=== PATIENT | male | born 1955 | race Caucasian/White ===

== ENCOUNTER 2017-04-16 11:52 | Inpatient (IN) | payer MEDICARE ==
[~2017-04-16] VITALS: Ht 172.7 cm; Wt 61.4 kg
[~2017-04-16 11:52] MED LIST: ALBU8.5H8 IH; ALBU8HFA IH; ASPI-556 PO; BUDE10.2 IH; GLIP10TA9 PO; LISI-661 PO; METF10002 PO
[2017-04-16 12:07] LABS: GLUCOSE,POINT OF CARE 386 MG/DL (70-110)
[2017-04-16 13:02] LABS: BASOPHILS # (AUTO) 0.01 K/uL (0.00-0.20); BASOPHILS % (AUTO) 0.1 % (0.0-2.0); EOSINOPHILS # (AUTO) 0.02 K/uL (0.00-0.70); HEMATOCRIT 47.9 % (41-53); HEMOGLOBIN 16.5 g/dL (13.5-17.5); LYMPHOCYTES # (AUTO) 0.9 K/uL (1.0-4.8); LYMPHOCYTES % (AUTO) 16.6 % (22.0-44.0); MEAN CORPUSCULAR HGB CONC 34.4 G/dL (31.0-37.0); MEAN CORPUSCULAR VOLUME 87 fL (80-100); MONOCYTES # (AUTO) 0.5 K/uL (0.1-1.0); MONOCYTES % (AUTO) 8.8 % (2.0-9.0); NEUTROPHILS % (AUTO) 74.1 % (40.0-70.0); PLATELET COUNT (AUTO) 145 K/uL (150-450); RED BLOOD CELL COUNT(AUTO) 5.48 MIL/uL (4.50-5.90); RED CELL DISTRIBUTION WIDTH 13.1 % (11.5-14.5)
[2017-04-16 13:10] LABS: INR 1.1 (0.9-1.1); PROTHROMBIN TIME 11.4 SEC (9.4-11.6)
[2017-04-16 13:55] LABS: ALANINE AMINOTRANSFERASE 33 U/L (12-78); ALBUMIN 3.3 g/dL (3.4-5.0); ALKALINE PHOSPHATASE 69 U/L (46-116); ANION GAP 13 mmol/L (8-16); ASPARTATE AMINOTRANSFERASE 25 U/L (15-37); BILIRUBIN,TOTAL 0.5 mg/dL (0.1-1.0); CALCIUM, TOTAL 9.5 mg/dL (8.8-10.5); CARBON DIOXIDE 24 mmol/L (22-29); CHLORIDE 98 mmol/L (98-107); CREATINE KINASE MB 1.7 ng/mL (0-5); CREATINE KINASE, TOTAL 128 U/L (39-308); GLOMERULAR FILTR. RATE CALC > 60 mL/min (>60); POTASSIUM 4.4 mmol/L (3.5-5.1); SODIUM SERUM 135 mmol/L (136-145); TOTAL PROTEIN, SERUM 7.7 g/dL (6.4-8.2); UREA NITROGEN, BLOOD 16 mg/dL (7-18)
[2017-04-16 13:58] LABS: GLUCOSE,RANDOM 508 mg/dL (70-110)
[2017-04-16 14:44] LABS: INFLUENZA TYPE A NEGATIVE FOR TYPE A (NEGATIVE); INFLUENZA TYPE B NEGATIVE FOR TYPE B (NEGATIVE)
[2017-04-16] MEDS ORDERED: SODIUM CHLORIDE 0.9% 1,000 ML IV ONE ×2 (15:45→18:15)
[2017-04-16 17:32] LABS: APPEARANCE,URINE CLOUDY (CLEAR); BILIRUBIN,URINE NEGATIVE (NEGATIVE); GLUCOSE, URINE (UA) >=1000 mg/dL (NEGATIVE); KETONES,URINE 40 mg/dL (NEGATIVE); LEUKOCYTE ESTERASE ,URINE TRACE (NEGATIVE); NITRATE,URINE POSITIVE (NEGATIVE); OCCULT BLOOD,URINE LARGE (NEGATIVE); PROTEIN,URINE POS 1+ (NEGATIVE)
[2017-04-16 17:54] LABS: RBC,URINE 51-100 /HPF (0-2); SQUAMOUS EPITHELIAL CELL,UR Few /LPF (None Seen)
[2017-04-16 17:55] LABS: BACTERIA,URINE Few /HPF (None Seen)
[2017-04-16] MEDS ORDERED: ONDANSETRON HCL 4 MG/2 ML VIAL IVP ONE ×2 (18:15→21:30)
[2017-04-16] MEDS ORDERED: CefTRIAXone 1 GM/DEXTROSE 50 ML IV ONE (18:15)
[2017-04-16] MEDS ORDERED: MORPHINE SULFATE 4 MG/ML SYRINGE IVP ONE (18:15)
[2017-04-16 19:07] LABS: GLUCOSE,POINT OF CARE 281 MG/DL (70-110)
[2017-04-16] MEDS ORDERED: ACETAMINOPHEN 325 MG TABLET PO PRN (20:15)
[2017-04-16] MEDS ORDERED: 0.9% SODIUM CHLORIDE 10 ML SYRINGE IVP PRN (20:15)
[2017-04-16] MEDS ORDERED: ONDANSETRON HCL 4 MG/2 ML VIAL IVP PRN (20:15)
[2017-04-16] MEDS ORDERED: MORPHINE SULFATE 10 MG/ML SYRINGE IVP ONE (21:30)
[2017-04-16 22:43] LABS: GLUCOMETER DEV NAME(LOC) PV 4E; GLUCOSE,POINT OF CARE 280 MG/DL (70-110)
[2017-04-16 22:51] VITALS: BP 174/99
[2017-04-17] VITALS (7 sets, daily range): BP systolic 126–180; BP diastolic 76–107
[2017-04-17] MEDS: MORPHINE SULFATE 2 MG/ML SYRINGE IVP PRN (05:07)
[2017-04-17] MEDS: HYDROCODONE/ACETAMINOPHEN 5-325 MG TABLET PO PRN ×2 (06:24→20:04)
[2017-04-17] MEDS ORDERED: INFLUENZA VIRUS VACCINE QVS 2017-18 (3YR+)/PF 60 MCG/0.5 ML SYRINGE IM ONE (07:00)
[2017-04-17 07:38] LABS: GLUCOMETER DEV NAME(LOC) PV 4E; GLUCOSE,POINT OF CARE 277 MG/DL (70-110)
[2017-04-17] MEDS ORDERED: ALBUTEROL SULFATE HFA 90 MCG/PUFF 8 GM INHALER IH PRN ×2 (08:45→11:48)
[2017-04-17] MEDS ORDERED: MAGNESIUM HYDROXIDE SUSPENSION 30 ML UDCUP PO PRN (08:45)
[2017-04-17] MEDS ORDERED: DEXTROSE 50%-WATER 25 GM/50 ML SYRINGE IVP PRN ×2 (08:45→12:30)
[2017-04-17] MEDS ORDERED: ZOLPIDEM TARTRATE 5 MG TABLET PO PRN (08:45)
[2017-04-17] MEDS ORDERED: ACETAMINOPHEN 325 MG TABLET PO PRN (08:45)
[2017-04-17] MEDS ORDERED: MORPHINE SULFATE 2 MG/ML SYRINGE IVP PRN (08:45)
[2017-04-17] MEDS ORDERED: ONDANSETRON HCL 4 MG/2 ML VIAL IVP PRN (08:45)
[2017-04-17] MEDS ORDERED: INSULIN ASPART 100 UNITS/ML SQ PRN (08:45)
[2017-04-17] MEDS: DOCUSATE SODIUM 100 MG CAPSULE PO SCH ×2 (09:00→20:01)
[2017-04-17] MEDS ORDERED: HydrALAZINE HCL 20 MG/ML VIAL IVP PRN (09:00)
[2017-04-17] MEDS: ASPIRIN 81 MG EC TABLET PO SCH (09:00)
[2017-04-17] MEDS ORDERED: ENOXAPARIN SODIUM 40 MG/0.4 ML PF SYRINGE SQ SCH (09:00)
[2017-04-17] MEDS ORDERED: BARIUM SULFATE 0.1% SUSPENSION 450 ML BOTTLE ONE (10:32)
[2017-04-17] MEDS: LISINOPRIL 10 MG TABLET PO SCH (10:33)
[2017-04-17] MEDS: PANTOPRAZOLE SODIUM 40 MG DR TABLET PO SCH (10:33)
[2017-04-17] MEDS: BUDESONIDE/FORMOTEROL FUMARATE 160-4.5 MCG/PUFF 6.9 GM INHALER IH SCH ×2 (10:39→20:07)
[2017-04-17 10:52] LABS: BASOPHILS % (AUTO) 0.4 % (0.0-2.0); EOSINOPHILS % (AUTO) 0.9 % (1.0-6.0); HEMATOCRIT 41.9 % (41-53); HEMOGLOBIN 14.5 g/dL (13.5-17.5); LYMPHOCYTES # (AUTO) 1.3 K/uL (1.0-4.8); LYMPHOCYTES % (AUTO) 28.9 % (22.0-44.0); MEAN CORPUSCULAR HEMOGLOBIN 30.6 pg (26.0-34.0); MEAN CORPUSCULAR HGB CONC 34.7 G/dL (31.0-37.0); MEAN CORPUSCULAR VOLUME 88 fL (80-100); MONOCYTES # (AUTO) 0.4 K/uL (0.1-1.0); MONOCYTES % (AUTO) 8.7 % (2.0-9.0); NEUTROPHILS # (AUTO) 2.7 K/uL (1.8-7.7); NEUTROPHILS % (AUTO) 61.1 % (40.0-70.0); PLATELET COUNT (AUTO) 152 K/uL (150-450); RED BLOOD CELL COUNT(AUTO) 4.75 MIL/uL (4.50-5.90); RED CELL DISTRIBUTION WIDTH 12.7 % (11.5-14.5)
[2017-04-17 10:59] LABS: INR 1.1 (0.9-1.1); PROTHROMBIN TIME 11.2 SEC (9.4-11.6)
[2017-04-17 11:11] LABS: ALANINE AMINOTRANSFERASE 31 U/L (12-78); ALBUMIN 2.9 g/dL (3.4-5.0); ALKALINE PHOSPHATASE 61 U/L (46-116); ANION GAP 6 mmol/L (8-16); ASPARTATE AMINOTRANSFERASE 23 U/L (15-37); BILIRUBIN,TOTAL 0.4 mg/dL (0.1-1.0); CALCIUM, TOTAL 8.9 mg/dL (8.8-10.5); CARBON DIOXIDE 30 mmol/L (22-29); CHLORIDE 97 mmol/L (98-107); CREATININE 0.94 mg/dL (0.60-1.30); GLOMERULAR FILTR. RATE CALC > 60 mL/min (>60); POTASSIUM 4.9 mmol/L (3.5-5.1); SODIUM SERUM 133 mmol/L (136-145); TOTAL PROTEIN, SERUM 6.8 g/dL (6.4-8.2); UREA NITROGEN, BLOOD 12 mg/dL (7-18)
[2017-04-17 11:17] LABS: GLUCOSE,RANDOM 504 mg/dL (70-110)
[2017-04-17] MEDS ORDERED: INSULIN ASPART 100 UNITS/ML SQ ONE (11:45)
[2017-04-17] MEDS: INSULIN GLARGINE,HUM.REC.ANLOG 100 UNITS/ML SQ SCH ×2 (11:59→20:11)
[2017-04-17 12:18] LABS: GLUCOMETER DEV NAME(LOC) PV 4E; GLUCOSE,POINT OF CARE 433 MG/DL (70-110)
[2017-04-17 12:53] LABS: GLUCOMETER DEV NAME(LOC) PV 4E; GLUCOSE,POINT OF CARE 259 MG/DL (70-110)
[2017-04-17] MEDS ORDERED: ENALAPRILAT DIHYDRATE 1.25 MG/ML VIAL IVP PRN (13:30)
[2017-04-17] MEDS ORDERED: IOVERSOL 350 MG/ML 100 ML VIAL ONE (13:51)
[2017-04-17] MEDS ORDERED: SODIUM CHLORIDE 0.9% 100 ML ONE (13:51)
[2017-04-17 14:13] LABS: GLUCOMETER DEV NAME(LOC) PV 4E; GLUCOSE,POINT OF CARE 156 MG/DL (70-110)
[2017-04-17 14:38] LABS: GLUCOMETER DEV NAME(LOC) PV 4E; GLUCOSE,POINT OF CARE 126 MG/DL (70-110)
[2017-04-17 15:18] LABS: GLUCOMETER DEV NAME(LOC) PV 4E; GLUCOSE,POINT OF CARE 101 MG/DL (70-110)
[2017-04-17 16:23] LABS: GLUCOMETER DEV NAME(LOC) PV 4E; GLUCOSE,POINT OF CARE 181 MG/DL (70-110)
[2017-04-17] MEDS: INSULIN ASPART 100 UNITS/ML SQ PRN ×2 (17:44→20:12)
[2017-04-17] MEDS ORDERED: SODIUM CHLORIDE 0.9% 500 ML IV ONE (18:18)
[2017-04-17] MEDS: CefTRIAXone 1 GM/DEXTROSE 50 ML IV SCH (18:31)
[2017-04-17 20:52] LABS: GLUCOMETER DEV NAME(LOC) PV 4E; GLUCOSE,POINT OF CARE 381 MG/DL (70-110)
[2017-04-18] MEDS: INSULIN ASPART 100 UNITS/ML SQ PRN ×4 (04:36→23:24)
[2017-04-18 04:44] VITALS: BP 110/73
[2017-04-18] MEDS: HYDROCODONE/ACETAMINOPHEN 5-325 MG TABLET PO PRN (05:43)
[2017-04-18 07:17] LABS: GLUCOMETER DEV NAME(LOC) PV 4E; GLUCOSE,POINT OF CARE 210 MG/DL (70-110)
[2017-04-18 08:20] VITALS: BP 140/70
[2017-04-18] MEDS: LISINOPRIL 10 MG TABLET PO SCH (09:00)
[2017-04-18] MEDS: ASPIRIN 81 MG EC TABLET PO SCH (09:00)
[2017-04-18] MEDS: PANTOPRAZOLE SODIUM 40 MG DR TABLET PO SCH (09:00)
[2017-04-18] MEDS: DOCUSATE SODIUM 100 MG CAPSULE PO SCH ×2 (09:00→23:21)
[2017-04-18] MEDS: INSULIN GLARGINE,HUM.REC.ANLOG 100 UNITS/ML SQ SCH ×2 (09:09→23:23)
[2017-04-18] MEDS: BUDESONIDE/FORMOTEROL FUMARATE 160-4.5 MCG/PUFF 6.9 GM INHALER IH SCH ×2 (09:18→23:24)
[2017-04-18 12:13] VITALS: BP 145/97
[2017-04-18 13:47] LABS: GLUCOMETER DEV NAME(LOC) PV 4E; GLUCOSE,POINT OF CARE 280 MG/DL (70-110)
[2017-04-18] MEDS: MORPHINE SULFATE 2 MG/ML SYRINGE IVP PRN ×2 (14:25→20:14)
[2017-04-18 15:47] VITALS: BP 133/88
[2017-04-18] MEDS: CefTRIAXone 1 GM/DEXTROSE 50 ML IV SCH (16:50)
[2017-04-18 19:42] LABS: GLUCOMETER DEV NAME(LOC) PV 4E; GLUCOSE,POINT OF CARE 210 MG/DL (70-110)
[2017-04-18 23:37] LABS: GLUCOMETER DEV NAME(LOC) PV 4E; GLUCOSE,POINT OF CARE 287 MG/DL (70-110)
[2017-04-18 23:57] VITALS: BP 132/78
[2017-04-19 03:38] VITALS: BP 134/89
[2017-04-19] MEDS: HYDROCODONE/ACETAMINOPHEN 5-325 MG TABLET PO PRN ×3 (03:51→20:34)
[2017-04-19 06:48] LABS: GLUCOMETER DEV NAME(LOC) PV 4E; GLUCOSE,POINT OF CARE 103 MG/DL (70-110)
[2017-04-19 07:10] LABS: BASOPHILS % (AUTO) 0.5 % (0.0-2.0); EOSINOPHILS % (AUTO) 1.3 % (1.0-6.0); HEMATOCRIT 43.3 % (41-53); HEMOGLOBIN 14.8 g/dL (13.5-17.5); LYMPHOCYTES # (AUTO) 1.9 K/uL (1.0-4.8); LYMPHOCYTES % (AUTO) 29.1 % (22.0-44.0); MEAN CORPUSCULAR HEMOGLOBIN 30.4 pg (26.0-34.0); MEAN CORPUSCULAR HGB CONC 34.2 G/dL (31.0-37.0); MEAN CORPUSCULAR VOLUME 89 fL (80-100); MONOCYTES # (AUTO) 0.5 K/uL (0.1-1.0); MONOCYTES % (AUTO) 7.2 % (2.0-9.0); NEUTROPHILS % (AUTO) 61.9 % (40.0-70.0); PLATELET COUNT (AUTO) 206 K/uL (150-450); RED BLOOD CELL COUNT(AUTO) 4.87 MIL/uL (4.50-5.90); RED CELL DISTRIBUTION WIDTH 12.8 % (11.5-14.5)
[2017-04-19 07:16] LABS: ANION GAP 9 mmol/L (8-16); CALCIUM, TOTAL 8.7 mg/dL (8.8-10.5); CARBON DIOXIDE 31 mmol/L (22-29); CHLORIDE 102 mmol/L (98-107); CREATININE 0.95 mg/dL (0.60-1.30); GLOMERULAR FILTR. RATE CALC > 60 mL/min (>60); GLUCOSE,RANDOM 113 mg/dL (70-110); POTASSIUM 3.3 mmol/L (3.5-5.1); SODIUM SERUM 142 mmol/L (136-145); UREA NITROGEN, BLOOD 15 mg/dL (7-18)
[2017-04-19 08:05] VITALS: BP 156/96
[2017-04-19] MEDS: ASPIRIN 81 MG EC TABLET PO SCH (09:43)
[2017-04-19] MEDS: PANTOPRAZOLE SODIUM 40 MG DR TABLET PO SCH (09:43)
[2017-04-19] MEDS: DOCUSATE SODIUM 100 MG CAPSULE PO SCH ×2 (09:43→20:34)
[2017-04-19] MEDS: LISINOPRIL 10 MG TABLET PO SCH (09:43)
[2017-04-19] MEDS: INSULIN GLARGINE,HUM.REC.ANLOG 100 UNITS/ML SQ SCH ×2 (09:54→20:35)
[2017-04-19 10:02] LABS: GLUCOMETER DEV NAME(LOC) PV 4E; GLUCOSE,POINT OF CARE 128 MG/DL (70-110)
[2017-04-19] MEDS ORDERED: POTASSIUM CHLORIDE 20 MEQ ER TABLET PO ONE (10:45)
[2017-04-19 12:05] VITALS: BP 141/79
[2017-04-19] MEDS: MORPHINE SULFATE 2 MG/ML SYRINGE IVP PRN ×2 (12:09→23:53)
[2017-04-19] MEDS: INSULIN ASPART 100 UNITS/ML SQ PRN ×3 (12:15→20:36)
[2017-04-19 12:49] LABS: GLUCOMETER DEV NAME(LOC) PV 4E; GLUCOSE,POINT OF CARE 243 MG/DL (70-110)
[2017-04-19] MEDS: BUDESONIDE/FORMOTEROL FUMARATE 160-4.5 MCG/PUFF 6.9 GM INHALER IH SCH ×2 (15:49→20:31)
[2017-04-19 16:11] VITALS: BP 160/91
[2017-04-19 17:14] LABS: GLUCOMETER DEV NAME(LOC) PV 4E; GLUCOSE,POINT OF CARE 174 MG/DL (70-110)
[2017-04-19] MEDS: CefTRIAXone 1 GM/DEXTROSE 50 ML IV SCH (17:36)
[2017-04-19 20:06] VITALS: BP 149/88
[2017-04-19 21:17] LABS: GLUCOMETER DEV NAME(LOC) PV 4E; GLUCOSE,POINT OF CARE 137 MG/DL (70-110)
[2017-04-19 23:57] VITALS: BP 147/91
[2017-04-20] MEDS: HYDROCODONE/ACETAMINOPHEN 5-325 MG TABLET PO PRN ×2 (05:16→13:38)
[2017-04-20 05:48] VITALS: BP 140/90
[2017-04-20 06:03] LABS: GLUCOMETER DEV NAME(LOC) PV 4E; GLUCOSE,POINT OF CARE 99 MG/DL (70-110)
[2017-04-20 06:11] LABS: BASOPHILS # (AUTO) 0.01 K/uL (0.00-0.20); BASOPHILS % (AUTO) 0.2 % (0.0-2.0); EOSINOPHILS % (AUTO) 1.69 % (1.0-6.0); HEMATOCRIT 43.3 % (41-53); HEMOGLOBIN 14.4 g/dL (13.5-17.5); LYMPHOCYTES # (AUTO) 2.1 K/uL (1.0-4.8); LYMPHOCYTES % (AUTO) 35.1 % (22.0-44.0); MEAN CORPUSCULAR HGB CONC 33.2 G/dL (31.0-37.0); MEAN CORPUSCULAR VOLUME 90 fL (80-100); MONOCYTES # (AUTO) 0.4 K/uL (0.1-1.0); MONOCYTES % (AUTO) 6.5 % (2.0-9.0); NEUTROPHILS # (AUTO) 3.4 K/uL (1.8-7.7); NEUTROPHILS % (AUTO) 56.5 % (40.0-70.0); PLATELET COUNT (AUTO) 213 K/uL (150-450)
[2017-04-20 06:14] LABS: ANION GAP 7 mmol/L (8-16); CALCIUM, TOTAL 8.8 mg/dL (8.8-10.5); CARBON DIOXIDE 31 mmol/L (22-29); CHLORIDE 102 mmol/L (98-107); CREATININE 0.89 mg/dL (0.60-1.30); GLOMERULAR FILTR. RATE CALC > 60 mL/min (>60); GLUCOSE,RANDOM 112 mg/dL (70-110); POTASSIUM 4.4 mmol/L (3.5-5.1); SODIUM SERUM 140 mmol/L (136-145); UREA NITROGEN, BLOOD 14 mg/dL (7-18)
[2017-04-20 07:49] VITALS: BP 133/78
[2017-04-20] MEDS: PANTOPRAZOLE SODIUM 40 MG DR TABLET PO SCH (08:03)
[2017-04-20] MEDS: ASPIRIN 81 MG EC TABLET PO SCH (08:03)
[2017-04-20] MEDS: DOCUSATE SODIUM 100 MG CAPSULE PO SCH ×2 (08:03→20:37)
[2017-04-20] MEDS: LISINOPRIL 10 MG TABLET PO SCH (08:04)
[2017-04-20] MEDS: BUDESONIDE/FORMOTEROL FUMARATE 160-4.5 MCG/PUFF 6.9 GM INHALER IH SCH ×2 (08:06→20:40)
[2017-04-20 09:14] LABS: GLUCOMETER DEV NAME(LOC) PV 4E; GLUCOSE,POINT OF CARE 147 MG/DL (70-110)
[2017-04-20] MEDS: INSULIN GLARGINE,HUM.REC.ANLOG 100 UNITS/ML SQ SCH ×2 (09:14→21:00)
[2017-04-20 11:32] VITALS: BP 150/86
[2017-04-20] MEDS ORDERED: MULTIVITAMINS WITH MINERALS, THERAPEUTIC TABLET PO ONE (11:45)
[2017-04-20 12:17] LABS: GLUCOMETER DEV NAME(LOC) PV 4E; GLUCOSE,POINT OF CARE 240 MG/DL (70-110)
[2017-04-20] MEDS: INSULIN ASPART 100 UNITS/ML SQ PRN ×2 (12:17→17:49)
[2017-04-20 15:22] VITALS: BP 146/72
[2017-04-20] MEDS ORDERED: SODIUM CHLORIDE IRRIG ONE (17:14)
[2017-04-20] MEDS: CefTRIAXone 1 GM/DEXTROSE 50 ML IV SCH (17:41)
[2017-04-20 18:08] LABS: GLUCOMETER DEV NAME(LOC) PV 4E; GLUCOSE,POINT OF CARE 232 MG/DL (70-110)
[2017-04-20] MEDS: MORPHINE SULFATE 2 MG/ML SYRINGE IVP PRN (20:36)
[2017-04-20 20:47] VITALS: BP 133/78
[2017-04-20 23:31] VITALS: BP 114/70
[2017-04-21] MEDS: HYDROCODONE/ACETAMINOPHEN 5-325 MG TABLET PO PRN ×2 (01:36→11:47)
[2017-04-21 03:54] LABS: GLUCOMETER DEV NAME(LOC) PV 4E; GLUCOSE,POINT OF CARE 115 MG/DL (70-110)
[2017-04-21 04:13] VITALS: BP 123/72
[2017-04-21] MEDS: INSULIN ASPART 100 UNITS/ML SQ PRN ×2 (06:06→11:58)
[2017-04-21 06:44] LABS: BASOPHILS % (AUTO) 0.3 % (0.0-2.0); EOSINOPHILS % (AUTO) 1.4 % (1.0-6.0); HEMATOCRIT 41.6 % (41-53); HEMOGLOBIN 14.2 g/dL (13.5-17.5); LYMPHOCYTES # (AUTO) 1.7 K/uL (1.0-4.8); LYMPHOCYTES % (AUTO) 26.3 % (22.0-44.0); MEAN CORPUSCULAR HEMOGLOBIN 30.6 pg (26.0-34.0); MEAN CORPUSCULAR HGB CONC 34.1 G/dL (31.0-37.0); MEAN CORPUSCULAR VOLUME 90 fL (80-100); MONOCYTES # (AUTO) 0.5 K/uL (0.1-1.0); MONOCYTES % (AUTO) 7.8 % (2.0-9.0); NEUTROPHILS # (AUTO) 4.2 K/uL (1.8-7.7); NEUTROPHILS % (AUTO) 64.2 % (40.0-70.0); PLATELET COUNT (AUTO) 241 K/uL (150-450); RED BLOOD CELL COUNT(AUTO) 4.64 MIL/uL (4.50-5.90); RED CELL DISTRIBUTION WIDTH 13.5 % (11.5-14.5)
[2017-04-21 06:55] LABS: GLUCOMETER DEV NAME(LOC) PV 4E; GLUCOSE,POINT OF CARE 220 MG/DL (70-110)
[2017-04-21 07:46] LABS: ANION GAP 5 mmol/L (8-16); CALCIUM, TOTAL 9.1 mg/dL (8.8-10.5); CARBON DIOXIDE 29 mmol/L (22-29); CHLORIDE 100 mmol/L (98-107); CREATININE 0.87 mg/dL (0.60-1.30); GLOMERULAR FILTR. RATE CALC > 60 mL/min (>60); GLUCOSE,RANDOM 216 mg/dL (70-110); SODIUM SERUM 134 mmol/L (136-145); UREA NITROGEN, BLOOD 17 mg/dL (7-18)
[2017-04-21 08:00] VITALS: BP 140/86
[2017-04-21] MEDS: PANTOPRAZOLE SODIUM 40 MG DR TABLET PO SCH (08:05)
[2017-04-21] MEDS: DOCUSATE SODIUM 100 MG CAPSULE PO SCH (08:05)
[2017-04-21] MEDS: LISINOPRIL 10 MG TABLET PO SCH (08:05)
[2017-04-21] MEDS: BUDESONIDE/FORMOTEROL FUMARATE 160-4.5 MCG/PUFF 6.9 GM INHALER IH SCH (08:07)
[2017-04-21] MEDS: INSULIN GLARGINE,HUM.REC.ANLOG 100 UNITS/ML SQ SCH (08:20)
[2017-04-21 11:28] LABS: GLUCOMETER DEV NAME(LOC) PV 4E; GLUCOSE,POINT OF CARE 205 MG/DL (70-110)
[2017-04-21 12:01] VITALS: BP 156/93
[2017-04-21] MEDS ORDERED: CIPR-278 PO (14:12)
== END 2017-04-21 15:15 | disposition home or self-care (01) | DRG 637 ==
LOC: EMS 11:58 → 4E 21:30
PROVIDERS: ADMIT Hospitalist; ATTEND Hospitalist
DX: E11.65 Type 2 diabetes mellitus with hyperglycemia (principal); E43 Unspecified severe protein-calorie malnutrition; N39.0 Urinary tract infection, site not specified; R91.1 Solitary pulmonary nodule; I10 Essential (primary) hypertension; F12.90 Cannabis use, unspecified, uncomplicated; N40.0 Benign prostatic hyperplasia without lower urinary tract symptoms; F17.210 Nicotine dependence, cigarettes, uncomplicated; J42 Unspecified chronic bronchitis; Z79.899 Other long term (current) drug therapy; Z85.118 Personal history of other malignant neoplasm of bronchus and lung; Z79.82 Long term (current) use of aspirin; Z86.73 Personal history of transient ischemic attack (TIA), and cerebral infarction without residual deficits; M51.37 Other intervertebral disc degeneration, lumbosacral region; Z90.79 Acquired absence of other genital organ(s); Z68.20 Body mass index [BMI] 20.0-20.9, adult
CPT/HCPCS: 74177; 82962; 83036; 83605; 84132; 84153; 85651; 86140; 87040; 87086; 87804; 93005; 96361; 96374; 96375; 96376; 99285; J0696; J1815; J2270; J2405; J7030; J7040; J7050

== ENCOUNTER 2018-03-09 11:20 | Emergency (ER) | payer MEDICARE ==
[~2018-03-09] VITALS: Ht 170.2 cm; Wt 77.3 kg
[~2018-03-09 11:20] MED LIST changes: -ALBU8HFA IH; -ASPI-556 PO; +CIPR-278 PO; +METF-446 PO; -METF10002 PO
[2018-03-09 11:29] LABS: GLUCOSE,POINT OF CARE 281 MG/DL (70-110)
[2018-03-09 11:58] LABS: BASOPHILS % (AUTO) 0.3 % (0.0-2.0); EOSINOPHILS % (AUTO) 0.6 % (1.0-6.0); HEMATOCRIT 48.2 % (41-53); HEMOGLOBIN 16.7 g/dL (13.5-17.5); LYMPHOCYTES # (AUTO) 1.7 K/uL (1.0-4.8); LYMPHOCYTES % (AUTO) 19.9 % (22.0-44.0); MEAN CORPUSCULAR HGB CONC 34.7 G/dL (31.0-37.0); MEAN CORPUSCULAR VOLUME 89 fL (80-100); MONOCYTES # (AUTO) 0.4 K/uL (0.1-1.0); MONOCYTES % (AUTO) 4.4 % (2.0-9.0); NEUTROPHILS # (AUTO) 6.3 K/uL (1.8-7.7); NEUTROPHILS % (AUTO) 74.8 % (40.0-70.0); PLATELET COUNT (AUTO) 191 K/uL (150-450); RED BLOOD CELL COUNT(AUTO) 5.41 MIL/uL (4.50-5.90); RED CELL DISTRIBUTION WIDTH 13.8 % (11.5-14.5)
[2018-03-09 12:20] LABS: B-TYPE NATRIURETIC PEPTIDE 8 pg/mL (0-100)
[2018-03-09 12:21] LABS: ANION GAP 12 mmol/L (8-16); CALCIUM, TOTAL 9.2 mg/dL (8.8-10.5); CARBON DIOXIDE 27 mmol/L (22-29); CHLORIDE 98 mmol/L (98-107); CREATININE 0.82 mg/dL (0.60-1.30); GLOMERULAR FILTR. RATE CALC > 60 mL/min (>60); GLUCOSE,RANDOM 273 mg/dL (70-110); POTASSIUM 3.9 mmol/L (3.5-5.1); SODIUM SERUM 137 mmol/L (136-145); UREA NITROGEN, BLOOD 13 mg/dL (7-18)
[2018-03-09 12:46] LABS: ALANINE AMINOTRANSFERASE 33 U/L (12-78); ALBUMIN 4.2 g/dL (3.4-5.0); ALKALINE PHOSPHATASE 63 U/L (46-116); ASPARTATE AMINOTRANSFERASE 19 U/L (15-37); BILIRUBIN,TOTAL 0.5 mg/dL (0.1-1.0); CREATINE KINASE, TOTAL ONLY 85 U/L (39-308); TOTAL PROTEIN, SERUM 8.2 g/dL (6.4-8.2)
[2018-03-09 13:21] LABS: LIPASE 333 U/L (73-393)
[2018-03-09] MEDS ORDERED: IOVERSOL 350 MG/ML 100 ML VIAL ONE (13:32)
[2018-03-09] MEDS ORDERED: SODIUM CHLORIDE 0.9% 100 ML ONE (13:32)
[2018-03-09] MEDS ORDERED: KETOROLAC TROMETHAMINE 30 MG/ML VIAL IVP ONE (14:45)
[2018-03-09 15:31] LABS: APPEARANCE,URINE CLEAR (CLEAR); BILIRUBIN,URINE NEGATIVE (NEGATIVE); GLUCOSE, URINE (UA) >=1000 mg/dL (NEGATIVE); KETONES,URINE 15 mg/dL (NEGATIVE); LEUKOCYTE ESTERASE ,URINE NEGATIVE (NEGATIVE); NITRATE,URINE NEGATIVE (NEGATIVE); OCCULT BLOOD,URINE NEGATIVE (NEGATIVE); PROTEIN,URINE TRACE (NEGATIVE); UROBILINOGEN,URINE 0.2 mg/dL (<=1.0)
[2018-03-09 15:38] LABS: AMPHET/METH SCREEN,URINE NEGATIVE (NEGATIVE); BARBITURATE SCREEN, URINE NEGATIVE (NEGATIVE); BENZODIAZEPINES SCREEN,URINE NEGATIVE (NEGATIVE); CANNABINOID SCREEN,URINE POSITIVE (NEGATIVE); COCAINE SCREEN,URINE NEGATIVE (NEGATIVE); METHADONE SCREEN, URINE NEGATIVE (NEGATIVE); OPIATE SCREEN,URINE NEGATIVE (NEGATIVE)
[2018-03-09 15:39] LABS: PHENCYCLIDINE SCREEN,URINE NEGATIVE (NEGATIVE)
[2018-03-09 15:46] LABS: BACTERIA,URINE Rare /HPF (None Seen); RBC,URINE 0-2 /HPF (0-2); SQUAMOUS EPITHELIAL CELL,UR Few /LPF (None Seen)
[2018-03-09 16:02] VITALS: BP 128/87
== END 2018-03-09 16:46 | disposition home or self-care (01) ==
LOC: EMS 11:21
DX: N40.0 Benign prostatic hyperplasia without lower urinary tract symptoms (principal); R91.1 Solitary pulmonary nodule; R81 Glycosuria; R07.9 Chest pain, unspecified; R10.13 Epigastric pain; I10 Essential (primary) hypertension; E11.9 Type 2 diabetes mellitus without complications; F12.90 Cannabis use, unspecified, uncomplicated; F17.210 Nicotine dependence, cigarettes, uncomplicated; Z79.899 Other long term (current) drug therapy
CPT/HCPCS: 36415; 71045; 74177; 80053; 80307; 81001; 82550; 82962; 83690; 83880; 84484; 85025; 85610; 85730; 93005; 96374; 99285; J1885; J7050; Q9967